=== PATIENT | male | born 1985 | race African-American/Black ===

== ENCOUNTER 2024-03-20 08:23 | Emergency (ER) | payer MEDICAID ==
[~2024-03-20] VITALS: Ht 177.8 cm; Wt 91.0 kg
[2024-03-20 08:43] VITALS: BP 127/79; PULSE 67; RESP 18; TEMP 98.4; O2SAT 97
== END 2024-03-20 11:58 | disposition home or self-care (01) ==
LOC: ER 08:23
DX: M25.552 Pain in left hip (principal); M54.2 Cervicalgia; M25.562 Pain in left knee; V49.9XXA Car occupant (driver) (passenger) injured in unspecified traffic accident, initial encounter; Y93.89 Activity, other specified; Y92.89 Other specified places as the place of occurrence of the external cause; Y99.8 Other external cause status
CPT/HCPCS: 72040; 73502; 73562; 99284